=== PATIENT | female | born 1945 | race Caucasian/White ===

== ENCOUNTER 2024-03-25 14:07 | Inpatient (IN) | payer BC ==
[~2024-03-25] VITALS: Ht 162.6 cm; Wt 90.3 kg
[2024-03-25 14:24] VITALS: BP 136/61; PULSE 77; RESP 18; TEMP 97.9; O2SAT 96
[2024-03-25 15:22] LABS: BASOPHILS # (AUTO) 0.1 K/uL (0.00-0.22); BASOPHILS % (AUTO) 0.7 % (0.0-2.0); EOSINOPHILS # (AUTO) 0.1 K/uL (0-0.4); EOSINOPHILS % (AUTO) 1.8 % (0.0-4.0); HEMATOCRIT 31.9 % (36-48); HEMOGLOBIN 10.4 g/dL (12.0-16.0); LYMPHOCYTES # (AUTO) 1.4 K/uL (2.5-16.5); LYMPHOCYTES % (AUTO) 18.3 % (20.5-51.1); MEAN CORPUSCULAR HEMOGLOBIN 30 pg (27-31); MEAN CORPUSCULAR HGB CONC 33 g/dL (33-37); MEAN CORPUSCULAR VOLUME 91.7 fL (80-94); MONOCYTES # (AUTO) 0.6 K/uL (0.8-1.0); MONOCYTES % (AUTO) 7.6 % (1.7-9.3); NEUTROPHILS # (AUTO) 5.5 K/uL (1.8-7.7); NEUTROPHILS % (AUTO) 71.6 % (42.2-75.2); PLATELET COUNT (AUTO) 216 K/uL (140-450); RED BLOOD CELL COUNT(AUTO) 3.48 MIL/uL (4.20-5.40); RED CELL DISTRIBUTION WIDTH 18.2 % (11.6-13.7); WHITE BLOOD COUNT (AUTO) 7.6 K/uL (4.8-10.8)
[2024-03-25 15:36] LABS: ANION GAP 14.8 (8-16); CARBON DIOXIDE 27.5 mmol/L (21-32); CHLORIDE 103 mmol/L (98-107); CREATININE 1.7 mg/dL (0.6-1.3); GLUCOSE 102 mg/dL (74-106); POTASSIUM 3.3 mmol/L (3.5-5.1); SODIUM SERUM 142 mmol/L (136-145); UREA NITROGEN, BLOOD 18 mg/dL (7-18)
[2024-03-25 15:41] LABS: INR 1.05 (0.8-1.2); PARTIAL THROMBOPLASTIN TIME 24.8 secs (22-35.6)
[2024-03-25] MEDS ORDERED: VANCOMYCIN 1,000 MG VIAL ONE (16:30)
[2024-03-25] MEDS: FUROSEMIDE 40 MG/4 ML VIAL IVP ONE (16:35)
[2024-03-25] MEDS: VANCOMYCIN 1,000 MG in DEXTROSE 5% 250 ML IV ONE (16:38)
[2024-03-25] MEDS ORDERED: ACETAMINOPHEN 325 MG TAB PO PRN (18:05)
[2024-03-25] MEDS ORDERED: ALBUTEROL 0.083% 2.5 MG/3 ML NEBU INH PRN (18:05)
[2024-03-25] MEDS ORDERED: HYDROcodone/APAP 5/325 MG 1 TAB TAB PO PRN (18:05)
[2024-03-25] MEDS ORDERED: ONDANSETRON 4 MG/2 ML VIAL IVP PRN (18:05)
[2024-03-25] MEDS ORDERED: VANCOMYCIN PER PHARMACY MC PRN (18:05)
[2024-03-25] MEDS ORDERED: LORazepam 2 MG/ML VIAL IVP PRN (18:05)
[2024-03-25 19:04] LABS: BILIRUBIN,URINE NEGATIVE (NEGATIVE); BLOOD, URINE TRACE-I (NEGATIVE); COLOR,URINE YELLOW (YELLOW); LEUKOCYTE ESTERASE ,URINE NEGATIVE (NEGATIVE); NITRITE, URINE NEGATIVE (NEGATIVE); PH,URINE 6.5 (5.0-9.0); PROTEIN,URINE NEGATIVE (NEGATIVE); UGLUCOSE NEGATIVE (NEGATIVE); UROBILINOGEN,URINE 0.2 EU/dL (0.2 - 1)
[2024-03-25 19:09] LABS: APPEARANCE,URINE SLIGHTLY HAZY (CLEAR)
[2024-03-25 19:14] LABS: BACTERIA,URINE 1+ /HPF (None Seen); WBC,URINE 0-5 /HPF (0-5)
[2024-03-25 19:15] LABS: MUCUS,URINE 1+ /LPF (None Seen); SQUAMOUS EPITHELIAL CELL,UR 4-10 (MOD) /LPF (0-3 (FEW))
[2024-03-25] MEDS ORDERED: PIPERACILLIN/TAZOBACTAM 3.375 GM VIAL IV ONE (21:58)
[2024-03-25] MEDS: FUROSEMIDE 20 MG/2 ML VIAL IVP SCH (22:04)
[2024-03-25] MEDS: PIPERACILLIN/TAZOBACTAM 3.375 GM in DEXTROSE 5% 50 ML IV SCH (22:07)
[2024-03-25] MEDS ORDERED: FLUO10CA21 PO (22:31)
[2024-03-25] MEDS ORDERED: METO25TE2 PO (22:31)
[2024-03-25] MEDS ORDERED: OMEP20TC PO (22:31)
[2024-03-25] MEDS ORDERED: FURO-570 PO (22:31)
[2024-03-26] MEDS ORDERED: PIPERACILLIN/TAZOBACTAM 3.375 GM VIAL IV ONE (04:48)
[2024-03-26 08:20] VITALS: RESP 20; O2SAT 95
[2024-03-26] MEDS: POTASSIUM CHLORIDE 10 MEQ TABER PO PRN (09:46)
[2024-03-26] MEDS: ENOXAPARIN 30 MG/0.3 ML SYR SUBQ SCH (09:47)
[2024-03-26 10:41] VITALS: RESP 20; O2SAT 95
[2024-03-26 16:00] VITALS: BP 109/57; PULSE 64; RESP 18; TEMP 98.4; O2SAT 99
[2024-03-26] MEDS ORDERED: NACL 0.9% 500 ML IV SCH (17:25)
[2024-03-26 20:00] VITALS: BP 108/67; PULSE 64; PULSE 69; RESP 18; TEMP 97; O2SAT 97; O2SAT 99
[2024-03-27] VITALS (7 sets, daily range): BP systolic 97–136; BP diastolic 51–66; PULSE 61–69; RESP 17–18; TEMP 97.1–98; O2SAT 92–100
[2024-03-27 05:58] LABS: BASOPHILS # (AUTO) 0.1 K/uL (0.00-0.22); BASOPHILS % (AUTO) 0.9 % (0.0-2.0); EOSINOPHILS # (AUTO) 0.2 K/uL (0-0.4); EOSINOPHILS % (AUTO) 2.6 % (0.0-4.0); HEMATOCRIT 30.7 % (36-48); HEMOGLOBIN 10.1 g/dL (12.0-16.0); LYMPHOCYTES # (AUTO) 1.6 K/uL (2.5-16.5); LYMPHOCYTES % (AUTO) 23.2 % (20.5-51.1); MEAN CORPUSCULAR HEMOGLOBIN 31 pg (27-31); MEAN CORPUSCULAR HGB CONC 33 g/dL (33-37); MEAN CORPUSCULAR VOLUME 93.6 fL (80-94); MONOCYTES # (AUTO) 0.5 K/uL (0.8-1.0); MONOCYTES % (AUTO) 7.6 % (1.7-9.3); NEUTROPHILS # (AUTO) 4.6 K/uL (1.8-7.7); NEUTROPHILS % (AUTO) 65.7 % (42.2-75.2); PLATELET COUNT (AUTO) 188 K/uL (140-450); RED BLOOD CELL COUNT(AUTO) 3.28 MIL/uL (4.20-5.40); RED CELL DISTRIBUTION WIDTH 18.1 % (11.6-13.7); WHITE BLOOD COUNT (AUTO) 7.1 K/uL (4.8-10.8)
[2024-03-27 06:17] LABS: ANION GAP 7.9 (8-16); CALCIUM 10.4 mg/dL (8.5-10.1); CARBON DIOXIDE 33.1 mmol/L (21-32); CHLORIDE 102 mmol/L (98-107); CREATININE 1.6 mg/dL (0.6-1.3); GLUCOSE 96 mg/dL (74-106); SODIUM SERUM 140 mmol/L (136-145); UREA NITROGEN, BLOOD 17 mg/dL (7-18)
[2024-03-27] MEDS ORDERED: FLUoxetine 10 MG CAP PO SCH (09:00)
[2024-03-27] MEDS ORDERED: FUROSEMIDE 40 MG/4 ML VIAL IVP SCH (09:00)
[2024-03-27] MEDS: FUROSEMIDE 40 MG/4 ML VIAL IVP SCH (09:32)
[2024-03-27] MEDS: METOPROLOL SUCCINATE 50 MG TABER PO SCH (09:32)
[2024-03-27] MEDS ORDERED: VANCOMYCIN 1,000 MG in DEXTROSE 5% 250 ML IV SCH (10:00)
[2024-03-27] MEDS: VANCOMYCIN HCL 750 MG in DEXTROSE 5% 250 ML IV SCH (11:32)
[2024-03-27 17:14] LABS: APPEARANCE,URINE CLEAR (CLEAR); BILIRUBIN,URINE NEGATIVE (NEGATIVE); BLOOD, URINE TRACE-I (NEGATIVE); COLOR,URINE YELLOW (YELLOW); LEUKOCYTE ESTERASE ,URINE NEGATIVE (NEGATIVE); NITRITE, URINE NEGATIVE (NEGATIVE); PROTEIN,URINE NEGATIVE (NEGATIVE); UGLUCOSE NEGATIVE (NEGATIVE); UROBILINOGEN,URINE 0.2 EU/dL (0.2 - 1)
[2024-03-27 17:18] LABS: BACTERIA,URINE 1+ /HPF (None Seen); MUCUS,URINE 1+ /LPF (None Seen); RBC,URINE 0-5 /HPF (0-5); SQUAMOUS EPITHELIAL CELL,UR 0-3 (FEW) /LPF (0-3 (FEW)); WBC,URINE 0-5 /HPF (0-5)
[2024-03-27 17:19] LABS: YEAST,URINE Few /HPF (None Seen)
[2024-03-27 17:20] LABS: URIC ACID CRYSTALS,URINE 0-10 /HPF (None Seen)
[2024-03-27 22:03] LABS: CREATININE,URINE RANDOM 133 mg/dL (30-125); URINE SODIUM, RANDOM 32 mmol/l (40-220)
[2024-03-28] VITALS (9 sets, daily range): BP systolic 97–110; BP diastolic 52–65; PULSE 51–69; RESP 17–18; TEMP 97–97.8; O2SAT 92–98
[2024-03-29 01:55] VITALS: O2SAT 95
[2024-03-29 04:00] VITALS: BP 106/64; PULSE 52; RESP 18; TEMP 97.4; O2SAT 93
[2024-03-29 05:52] LABS: CALCIUM 11.2 mg/dL (8.5-10.1); CARBON DIOXIDE 35.7 mmol/L (21-32); CHLORIDE 98 mmol/L (98-107); CREATININE 1.5 mg/dL (0.6-1.3); GLUCOSE 100 mg/dL (74-106); POTASSIUM 3.7 mmol/L (3.5-5.1); SODIUM SERUM 136 mmol/L (136-145); UREA NITROGEN, BLOOD 19 mg/dL (7-18)
[2024-03-29 08:00] VITALS: BP 108/53; PULSE 52; PULSE 55; RESP 17; RESP 18; TEMP 97.6; O2SAT 95; O2SAT 96
[2024-03-29 10:20] VITALS: O2SAT 98
[2024-03-29 13:18] VITALS: TEMP 97
[2024-03-29] MEDS ORDERED: LINE600T4 PO (15:32)
[2024-03-29 15:36] VITALS: BP 96/53; PULSE 54; RESP 18; TEMP 97.8
== END 2024-03-29 17:50 | disposition home or self-care (01) | DRG 602 ==
LOC: MED 14:07 → MMU 18:05 → MTU 19:02
PROVIDERS: ADMIT Hospitalist; ATTEND Hospitalist
DX: L03.116 Cellulitis of left lower limb (principal); J96.01 Acute respiratory failure with hypoxia; N17.9 Acute kidney failure, unspecified; I13.0 Hypertensive heart and chronic kidney disease with heart failure and stage 1 through stage 4 chronic kidney disease, or unspecified chronic kidney disease; E66.9 Obesity, unspecified; I50.9 Heart failure, unspecified; N26.1 Atrophy of kidney (terminal); I95.9 Hypotension, unspecified; N18.9 Chronic kidney disease, unspecified; E11.22 Type 2 diabetes mellitus with diabetic chronic kidney disease; Z79.899 Other long term (current) drug therapy; Z68.34 Body mass index [BMI] 34.0-34.9, adult
CPT/HCPCS: 36415; 71045; 73630; 76770; 80048; 80202; 81001; 82570; 83605; 83880; 84156; 84300; 84484; 85025; 85610; 85730; 87040; 87081; 87086; 93005; 93971; 96365; 96375; 99285; J0696; J1650; J1940; J2543; J3370; J7060; Q0092